=== PATIENT | female | born 1985 | race Caucasian/White ===

== ENCOUNTER 2019-02-02 10:37 | Observation (INO) | payer MEDICAID ==
[~2019-02-02] VITALS: Ht 157.5 cm; Wt 66.5 kg
[2019-02-02] VITALS (11 sets, daily range): BP systolic 133–158; BP diastolic 79–97
--- NOTE | 2019-02-02 10:25 | NUR ---
OMA ABRAMS presented to unit via from ED, accompanied by staff, with INCREASED BLOOD PRESSURE. OMA ABRAMS weighed, gowned, voided, and to bed. EFSANDIP and TOCO applied, VS taken. OMA ABRAMS oriented to bed controls, call light, TV, heat, and A/C controls.
--- NOTE | 2019-02-02 10:47 | NUR ---
dr newberry notified of patient arrival to unit and anticipation of further orders.
[2019-02-02 11:25] LABS: BASOPHILS % (AUTO) 0 % (0-10); EOSINOPHILS # (AUTO) 0.1 10^3/uL (0.0-0.3); EOSINOPHILS % (AUTO) 1 % (0-10); HEMATOCRIT 39 % (35-52); HEMOGLOBIN 12.8 G/DL (11.5-16.0); LYMPHOCYTES # (AUTO) 2.2 X 10^3 (1.0-4.0); LYMPHOCYTES % (AUTO) 14 % (12-44); MEAN CORPUSCULAR HEMOGLOBIN 29 PG (25-34); MEAN CORPUSCULAR HGB CONC 33 G/DL (32-36); MEAN CORPUSCULAR VOLUME 87 FL (80-99); MEAN PLATELET VOLUME 11.2 FL (7.4-10.4); MONOCYTES # (AUTO) 1.4 X 10^3 (0.0-1.0); MONOCYTES % (AUTO) 9 % (0-12); NEUTROPHILS # (AUTO) 12.4 X 10^3 (1.8-7.8); NEUTROPHILS % (AUTO) 77 % (42-75); PLATELET COUNT 235 10^3/uL (130-400); RED CELL DISTRIBUTION WIDTH 13.9 % (10.0-14.5); WHITE BLOOD COUNT 16.2 10^3/uL (4.3-11.0)
--- NOTE | 2019-02-02 11:25 | NUR ---
sono at bedside.
[2019-02-02 11:46] LABS: BAND NEUTROPHILS 0 %; NEUTROPHILS % (MANUAL) 75 %
[2019-02-02 11:47] LABS: BASOPHILS % (MANUAL) 1 %; EOSINOPHILS % (MANUAL) 2 %; LYMPHOCYTES % (MANUAL) 18 %; MONOCYTES % (MANUAL) 4 %; RBC MORPH NORMAL
[2019-02-02 11:52] LABS: ALANINE AMINOTRANSFERASE 18 U/L (0-55); ALBUMIN 3.1 GM/DL (3.2-4.5); ALKALINE PHOSPHATASE 307 U/L (40-136); BILIRUBIN,TOTAL 0.4 MG/DL (0.1-1.0); BUN/CREATININE RATIO 15; CARBON DIOXIDE 18 MMOL/L (21-32); CHLORIDE 108 MMOL/L (98-107); CREATININE SERUM 0.65 MG/DL (0.60-1.30); GFR ESTIMATED > 60; GLUCOSE 86 MG/DL (70-105); POTASSIUM 3.6 MMOL/L (3.6-5.0); SODIUM 137 MMOL/L (135-145); TOTAL PROTEIN 6.5 GM/DL (6.4-8.2); URIC ACID 5.5 MG/DL (2.6-7.2)
[2019-02-02] MEDS ORDERED: BETAMETHASONE ACE/NA PHOS 6 MG/ML (CELESTONE SOLUSPAN) ONE (11:56)
[2019-02-02] MEDS: BETAMETHASONE ACE/NA PHOS 6 MG/ML (CELESTONE SOLUSPAN) IM SCH (12:12)
--- NOTE | 2019-02-02 12:20 | NUR ---
DR BIGGS AT BEDSIDE
[2019-02-02 12:30] LABS: BILIRUBIN,URINE NEGATIVE (NEGATIVE); CLARITY,URINE CLEAR; COLOR,URINE YELLOW; GLUCOSE, URINE (UA) NEGATIVE (NEGATIVE); KETONES,URINE 3+ (NEGATIVE); LEUKOCYTE ESTERASE ,URINE 1+ (NEGATIVE); NITRITE,URINE NEGATIVE (NEGATIVE); PH,URINE 6 (5-9); PROTEIN,URINE NEGATIVE (NEGATIVE)
[2019-02-02 12:39] LABS: AMPHETAMINE SCREEN, URINE POSITIVE (NEGATIVE); BARBITURATE SCREEN URINE NEGATIVE (NEGATIVE); BENZODIAZEPINES SCREEN URINE NEGATIVE (NEGATIVE); CANNABINOID SCREEN, URINE POSITIVE (NEGATIVE); COCAINE SCREEN URINE NEGATIVE (NEGATIVE); METHADONE STAT NEGATIVE (NEGATIVE); METHAMPHETAMINE SCREEN URINE S POSITIVE (NEGATIVE); OPIATE SCREEN URINE POSITIVE (NEGATIVE); OXYCODONE STAT NEGATIVE (NEGATIVE); PROPOXYPHENE STAT NEGATIVE (NEGATIVE); TRICYCLIC ANTIDEPRESSANTS SCRE NEGATIVE (NEGATIVE)
[2019-02-02 12:41] LABS: BACTERIA,URINE NEGATIVE /HPF; WBC,URINE RARE /HPF
--- NOTE | 2019-02-02 12:41 | Diagnostic Imaging Report ---
INDICATION: Hypertension. TECHNIQUE: Multiple real-time grayscale images were obtained over the gravid uterus. COMPARISON: None. FINDINGS: There is an abnormal biophysical profile at 6 out of 8. The deduction was for only intermittent episodes of breathing identified. Amniotic fluid index is 16.6. The heart rate is 135 bpm. Positioning is cephalic. The placenta is anterior fundal. There is no abruption or previa. No abnormality at the anatomical survey is revealed although limited visualization of the intracranial contents and cord insertion acknowledged. IMPRESSION: 6 out of 8 biophysical profile. Normal amniotic fluid index. No visualized anatomical abnormality. Positional limitations of cord insertion and intracranial contents noted. Fetus measuring 35 weeks 1 day, sonographic date of confinement 03/08/2019. Biometrical measurements are as follows: Biparietal 8.66 cm, age 35 weeks 0 days. Head circumference 31.48 cm, age 35 weeks 3 days. Abdominal circumference 31.04 cm, age 35 weeks 0 days. Femur length 6.77 cm, age 34 weeks 6 days. Sonographic estimate age: 35 weeks 1 day. Sonographic estimated date of delivery: . Estimated Weight: 2558 gm (+/- 374 gm). LMP percentile: 42%. heart rate: 135 beats per minute. number: 1 of 1. Dictated by: Dictated on workstation # [id number]
[2019-02-02 12:54] LABS: URINE CREATININE FOR RATIO 49 MG/DL (30-125); URINE PROTEIN FOR RATIO ONLY < 6 MG/DL (6-12)
[2019-02-02] MEDS: D5 LR IV SOLUTION 1,000 ML IV SCH (12:55)
--- NOTE | 2019-02-02 12:58 | NUR ---
DR BIGGS CALLED WITH UPDATED PT REPORT AT THIS TIME. LAB RESULTS READ TO DR BIGGS. DR BIGGS ACKNOWLEDGES RESULTS AND STATES THAT THE HIGH BLOOD PRESSURE IS DUE TO HER POSITIVE DRUG SCREEN. DR BIGGS STATES SHE WILL BE BACK TO SEE THE PT AGAIN IN A LITTLE BIT. NO NEW ORDERS.
--- NOTE | 2019-02-02 13:35 | NUR ---
DR BIGGS CALLED THIS RN WITH UPDATED PLAN OF PT CARE. PLAN IS TO MONITOR PT OVERNIGHT, BEDREST, CONTINUOUS EFM, BLOOD PRESSURES, ADMIN 2ND DOSE FO BETAMETHASONE TOMORROW. IF UNABLE TO CONTROL BLOOD PRESSURES, WILL DO C/S TOMORROW. IF BLOOD PRESSURES ARE CONTROLLED, DR MAY SEND PT HOME. PT MAY EAT UNTIL MIDNIGHT. NPO AFTER MIDNIGHT FOR POSSIBLE C/S TOMORROW.
--- NOTE | 2019-02-02 13:37 | Progress Note ---
Progress Note Assessment/Plan Date Seen by Provider: Feb 02, 2019 Time Seen by Provider: 13:30 Events since last exam US consistent with 35 week gestation. BPP 6/8 (-2 breathing). NST not yet reactive BP still elevated 156/97 P/c neg Laboratory Tests Test 02/02/19 11:15 02/02/19 12:15 Range/Units White Blood Count 16.2 H 4.3-11.0 10^3/uL Red Blood Count 4.46 4.35-5.85 10^6/uL Hemoglobin 12.8 11.5-16.0 G/DL Hematocrit 39 35-52 % Mean Corpuscular Volume 87 80-99 FL Mean Corpuscular Hemoglobin 29 25-34 PG Mean Corpuscular Hemoglobin Concent 33 32-36 G/DL Red Cell Distribution Width 13.9 10.0-14.5 % Platelet Count 235 130-400 10^3/uL Mean Platelet Volume 11.2 H 7.4-10.4 FL Neutrophils (%) (Auto) 77 H 42-75 % Lymphocytes (%) (Auto) 14 12-44 % Monocytes (%) (Auto) 9 0-12 % Eosinophils (%) (Auto) 1 0-10 % Basophils (%) (Auto) 0 0-10 % Neutrophils # (Auto) 12.4 H 1.8-7.8 X 10^3 Lymphocytes # (Auto) 2.2 1.0-4.0 X 10^3 Monocytes # (Auto) 1.4 H 0.0-1.0 X 10^3 Eosinophils # (Auto) 0.1 0.0-0.3 10^3/uL Basophils # (Auto) 0.0 0.0-0.1 10^3/uL Neutrophils % (Manual) 75 % Lymphocytes % (Manual) 18 % Monocytes % (Manual) 4 % Eosinophils % (Manual) 2 % Basophils % (Manual) 1 % Band Neutrophils 0 % Blood Morphology Comment NORMAL Sodium Level 137 135-145 MMOL/L Potassium Level 3.6 3.6-5.0 MMOL/L Chloride Level 108 H 98-107 MMOL/L Carbon Dioxide Level 18 L 21-32 MMOL/L Anion Gap 11 5-14 MMOL/L Blood Urea Nitrogen 10 7-18 MG/DL Creatinine 0.65 0.60-1.30 MG/DL Estimat Glomerular Filtration Rate > 60 BUN/Creatinine Ratio 15 Glucose Level 86 70-105 MG/DL Uric Acid 5.5 2.6-7.2 MG/DL Calcium Level 9.0 8.5-10.1 MG/DL Corrected Calcium 9.7 8.5-10.1 MG/DL Total Bilirubin 0.4 0.1-1.0 MG/DL Aspartate Amino Transf (AST/SGOT) 25 5-34 U/L Alanine Aminotransferase (ALT/SGPT) 18 0-55 U/L Alkaline Phosphatase 307 H 40-136 U/L Lactate Dehydrogenase 185 125-220 U/L Total Protein 6.5 6.4-8.2 GM/DL Albumin 3.1 L 3.2-4.5 GM/DL Urine Color YELLOW Urine Clarity CLEAR Urine pH 6 5-9 Urine Specific [place] 1.015 L 1.016-1.022 Urine Protein NEGATIVE NEGATIVE Urine Glucose (UA) NEGATIVE NEGATIVE Urine Ketones 3+ H NEGATIVE Urine Nitrite NEGATIVE NEGATIVE Urine Bilirubin NEGATIVE NEGATIVE Urine Urobilinogen NORMAL NORMAL MG/DL Urine Leukocyte Esterase 1+ H NEGATIVE Urine RBC (Auto) NEGATIVE NEGATIVE Urine RBC NONE /HPF Urine WBC RARE /HPF Urine Squamous Epithelial Cells 5-10 /HPF Urine Crystals NONE /LPF Urine Bacteria NEGATIVE /HPF Urine Casts NONE /LPF Urine Mucus NEGATIVE /LPF Urine Culture Indicated NO Urine Creatinine 49 30-125 MG/DL Urine Protein/Creatinine Ratio Urine Opiates Screen POSITIVE H NEGATIVE Urine Oxycodone Screen NEGATIVE NEGATIVE Urine Methadone Screen NEGATIVE NEGATIVE Urine Propoxyphene Screen NEGATIVE NEGATIVE Urine Barbiturates Screen NEGATIVE NEGATIVE Ur Tricyclic Antidepressants Screen NEGATIVE NEGATIVE Urine Phencyclidine Screen NEGATIVE NEGATIVE Urine Amphetamines Screen POSITIVE H NEGATIVE Urine Methamphetamines Screen POSITIVE H NEGATIVE Urine Benzodiazepines Screen NEGATIVE NEGATIVE Urine Cocaine Screen NEGATIVE NEGATIVE Urine Cannabinoids Screen POSITIVE H NEGATIVE Assessment/Plan Due to non reactive NST/BPP and + UCG, will monitor blood pressures overnight. If better controlled with bedrest may consider DC home on bedrest with possible CS next week. However, Betamethasone given today and will repeat tomorrow in the event that early CS is necessary. Labs wnl, no proteinuria. + UDS meth/amph/narcotic and THC. Vitals Last set of Vitals Signs Vital Signs Date Time Temp Pulse Resp B/P (MAP) Pulse Ox O2 Delivery O2 Flow Rate FiO2 02/02/19 11:01 35.8 100 16 100 Room Air Labs Laboratory Tests 02/02/19 11:15: White Blood Count 16.2H, Red Blood Count 4.46, Hemoglobin 12.8, Hematocrit 39, Mean Corpuscular Volume 87, Mean Corpuscular Hemoglobin 29, Mean Corpuscular He moglobin Concent 33, Red Cell Distribution Width 13.9, Platelet Count 235, Mean Platelet Volume 11.2H, Neutrophils (%) (Auto) 77H, Lymphocytes (%) (Auto) 14, Monocytes (%) (Auto) 9, Eosinophils (%) (Auto) 1, Basophils (%) (Auto) 0, Neutrophils # (Auto) 12.4H, Lymphocytes # (Auto) 2.2, Monocytes # (Auto) 1.4H, Eosinophils # (Auto) 0.1, Basophils # (Auto) 0.0, Neutrophils % (Manual) 75, Lymphocytes % (Manual) 18, Monocytes % (Manual) 4, Eosinophils % (Manual) 2, Basophils % (Manual) 1, Band Neutrophils 0, Blood Morphology Comment NORMAL, Sodium Level 137, Potassium Level 3.6, Chloride Level 108H, Carbon Dioxide Level 18L, Anion Gap 11, Blood Urea Nitrogen 10, Creatinine 0.65, Estimat Glomerular Filtration Rate > 60, BUN/Creatinine Ratio 15, Glucose Level 86, Uric Acid 5.5, Calcium Level 9.0, Corrected Calcium 9.7, Total Bilirubin 0.4, Aspartate Amino Transf (AST/SGOT) 25, Alanine Aminotransferase (ALT/SGPT) 18, Alkaline Phosphatase 307H, Lactate Dehydrogenase 185, Total Protein 6.5, Albumin 3.1L 02/02/19 12:15: Urine Color YELLOW, Urine Clarity CLEAR, Urine pH 6, Urine Specific [place] 1.015L, Urine Protein NEGATIVE, Urine Glucose (UA) NEGATIVE, Urine Ketones 3+H, Urine Nitrite NEGATIVE, Urine Bilirubin NEGATIVE, Urine Urobilinogen NORMAL, Urine Leukocyte Esterase 1+H, Urine RBC (Auto) NEGATIVE, Urine RBC NONE, Urine WBC RARE, Urine Squamous Epithelial Cells 5-10, Urine Crystals NONE, Urine Bacteria NEGATIVE, Urine Casts NONE, Urine Mucus NEGATIVE, Urine Culture Indicated NO, Urine Creatinine 49, Urine Protein/Creatinine Ratio , Urine Opiates Screen POSITIVEH, Urine Oxycodone Screen NEGATIVE, Urine Methadone Screen NEGATIVE, Urine Propoxyphene Screen NEGATIVE, Urine Barbiturates Screen NEGATIVE, Ur Tricyclic Antidepressants Screen NEGATIVE, Urine Phencyclidine Screen NEGATIVE, Urine Amphetamines Screen POSITIVEH, Urine Methamphetamines Screen POSITIVEH, Urine Benzodiazepines Screen NEGATIVE, Urine Cocaine Screen NEGATIVE, Urine Cannabinoids Screen POSITIVEH JESUS BIGGS DO Feb 02, 2019 13:37 POS
[2019-02-02] MEDS ORDERED: CATHETER FLUSH 10 ML SYR IV SCH (14:00)
--- NOTE | 2019-02-02 17:45 | NUR ---
DR BIGGS AT BEDSIDE. DR BIGGS TALKS WITH THIS RN ABOUT PLAN OF PT CARE. MAY SALINE LOCK IV AFTER 1ST BAG IS FINISHED. WILL RESTART IV FLUIDS AT MIDNIGHT. SCD ORDER OVER NIGHT.
--- NOTE | 2019-02-02 20:32 | NUR ---
Dr. Ochoa called unit and spoke with this RN for update on patient. No new orders received.
[2019-02-02] MEDS ORDERED: D5 LR IV SOLUTION 1,000 ML IV ONE (23:55)
[2019-02-03] MEDS: D5 LR IV SOLUTION 1,000 ML IV SCH
[2019-02-03 00:05] VITALS: BP 127/78
[2019-02-03 04:15] VITALS: BP 132/85
--- NOTE | 2019-02-03 07:55 | NUR ---
DR. BIGGS IN TO SEE PT. ORDER FOR DISCHARGE AFTER BETAMETHASONE GIVEN AT 1200. PT STATES UNDERSTANDING. PT ALSO GOING TO HAVE HER TDAP. ASSESSMENT COMPLETED. VSS.
[2019-02-03 08:02] VITALS: BP 130/69
[2019-02-03] MEDS ORDERED: TETANUS,DIPTH,PERTUSS P/F (BOOSTRIX) 0.5 ML VIAL IM ONE ×2 (08:30→10:33)
--- NOTE | 2019-02-03 09:28 | NUR ---
PT NOT IN ROOM. CALLED CELL PHONE. PT STATES SHE WENT DOWNSTAIRS TO HER CAR WITH S.O. AND WILL RETURN. WANTS TO KNOW IF SHE CAN GET HER SHOT REALLY FAST SO SHE CAN LEAVE. EXPLAINED IT ISN'T DUE UNTIL CLOSER TO NOON.
--- NOTE | 2019-02-03 10:00 | NUR ---
PT RETURNED TO ROOM.
--- NOTE | 2019-02-03 10:30 | NUR ---
PT STATES NEEDS TO LEAVE AND COME BACK FOR SHOT BECAUSE SHE HAS TO MEET WITH AN FIBER DRIER OPERATOR IN [facility] AT 1230 OR SHE WILL BE ARRESTED. DR. BIGGS INFORMED OF PT'S CONCERN AND ORDERED TO GIVE BETAMETHASONE NOW.
[2019-02-03] MEDS: BETAMETHASONE ACE/NA PHOS 6 MG/ML (CELESTONE SOLUSPAN) IM SCH (10:38)
--- NOTE | 2019-02-03 10:38 | NUR ---
BETAMETHASONE 12 MG IM IN LEFT VG SITE. SITE CLEAR.
--- NOTE | 2019-02-03 10:42 | NUR ---
TDAP VACCINE GIVEN IM IN LEFT DELTOID. SITE CLEAR.
[2019-02-03 11:05] VITALS: BP 130/69
--- NOTE | 2019-02-03 11:05 | NUR ---
DISCHARGE INSTRUCTIONS REVIEWED WITH COPY TO PT. STATES UNDERSTANDING OF ALL INSTRUCTIONS AND NEED TO F/U SCHEDULED AND NEEDED. DISMISSED AMB FROM [facility] IN STABLE CONDITION TO FAMILY CAR ACC BY ManuelODioni
== END 2019-02-03 11:05 | disposition home or self-care (01) ==
LOC: WSo 10:37 → LDRP 10:38 → WSo 13:38 → LDRP 13:38
PROVIDERS: ADMIT Obstetrics & Gynecology; ATTEND Obstetrics & Gynecology
DX: O34.219 Maternal care for unspecified type scar from previous cesarean delivery (principal); Z87.891 Personal history of nicotine dependence; Z82.49 Family history of ischemic heart disease and other diseases of the circulatory system; Z83.3 Family history of diabetes mellitus; Z80.41 Family history of malignant neoplasm of ovary; Z37.0 Single live birth
CPT/HCPCS: 36415; 76805; 76819; 80053; 80306; 81000; 82570; 83615; 84156; 84550; 85007; 85027; 86850; 86900; 86901; 87088; 90471; 90715; 96360; 96361; 96372; 99211; G0378

== ENCOUNTER → 2019-02-13 | Outpatient (CLI) | payer MEDICAID ==
[~2019-02-13] VITALS: Ht 154 cm; Wt 70.9 kg
[~2019-02-13] MED LIST: ACET-77 PO; DOCU100C37 PO; FURO20TA4 PO; GABA-488 PO; GUAI600T43 PO; IBUP-844 PO; OXC5T PO; RT-ALBUINH INH
[2019-02-13 11:42] LABS: BILIRUBIN,URINE NEGATIVE (NEGATIVE); CLARITY,URINE CLEAR; COLOR,URINE YELLOW; GLUCOSE, URINE (UA) NEGATIVE (NEGATIVE); KETONES,URINE NEGATIVE (NEGATIVE); LEUKOCYTE ESTERASE ,URINE NEGATIVE (NEGATIVE); NITRITE,URINE NEGATIVE (NEGATIVE); PH,URINE 6.5 (5-9); PROTEIN,URINE NEGATIVE (NEGATIVE)
[2019-02-13 11:43] LABS: BASOPHILS # (AUTO) 0.1 10^3/uL (0.0-0.1); BASOPHILS % (AUTO) 0 % (0-10); EOSINOPHILS # (AUTO) 0.2 10^3/uL (0.0-0.3); EOSINOPHILS % (AUTO) 1 % (0-10); HEMATOCRIT 39 % (35-52); HEMOGLOBIN 12.3 G/DL (11.5-16.0); LYMPHOCYTES # (AUTO) 2.9 X 10^3 (1.0-4.0); LYMPHOCYTES % (AUTO) 17 % (12-44); MEAN CORPUSCULAR HEMOGLOBIN 28 PG (25-34); MEAN CORPUSCULAR HGB CONC 32 G/DL (32-36); MEAN CORPUSCULAR VOLUME 89 FL (80-99); MEAN PLATELET VOLUME 11.4 FL (7.4-10.4); MONOCYTES # (AUTO) 1.5 X 10^3 (0.0-1.0); MONOCYTES % (AUTO) 9 % (0-12); NEUTROPHILS # (AUTO) 12.4 X 10^3 (1.8-7.8); NEUTROPHILS % (AUTO) 73 % (42-75); PLATELET COUNT 253 10^3/uL (130-400); RED CELL DISTRIBUTION WIDTH 14.4 % (10.0-14.5)
[2019-02-13 11:52] LABS: BACTERIA,URINE FEW /HPF; WBC,URINE 0-2 /HPF
[2019-02-13 12:12] LABS: ALANINE AMINOTRANSFERASE 18 U/L (0-55); ALBUMIN 3.2 GM/DL (3.2-4.5); ALKALINE PHOSPHATASE 257 U/L (40-136); BILIRUBIN,TOTAL 0.2 MG/DL (0.1-1.0); BUN/CREATININE RATIO 17; CARBON DIOXIDE 20 MMOL/L (21-32); CHLORIDE 107 MMOL/L (98-107); CREATININE SERUM 0.65 MG/DL (0.60-1.30); GFR ESTIMATED > 60; GLUCOSE 96 MG/DL (70-105); POTASSIUM 4.1 MMOL/L (3.6-5.0); SODIUM 140 MMOL/L (135-145); TOTAL PROTEIN 6.3 GM/DL (6.4-8.2)
[2019-02-13 12:33] LABS: BAND NEUTROPHILS 0 %; BASOPHILS % (MANUAL) 0 %; EOSINOPHILS % (MANUAL) 4 %; LYMPHOCYTES % (MANUAL) 25 %; MONOCYTES % (MANUAL) 7 %; NEUTROPHILS % (MANUAL) 64 %; RBC MORPH NORMAL
== END ==
LOC: PREOP 10:56
PROVIDERS: ATTEND Obstetrics & Gynecology
DX: Z01.818 Encounter for other preprocedural examination (principal); Z01.812 Encounter for preprocedural laboratory examination; O34.219 Maternal care for unspecified type scar from previous cesarean delivery; Z3A.00 Weeks of gestation of pregnancy not specified
CPT/HCPCS: 36415; 80053; 81000; 85007; 85027; 86850; 86900; 86901; 87081

== ENCOUNTER 2019-02-16 11:05 | Inpatient (IN) | payer MEDICAID ==
[2019-02-16] VITALS (8 sets, daily range): BP systolic 123–148; BP diastolic 77–97
[~2019-02-16] VITALS: Ht 157.5 cm; Wt 70.8 kg
--- NOTE | 2019-02-16 11:05 | NUR ---
Arrived to unit for repeat . Wt obtained and to room 315. Gowned and urine sample obtained. To bed and monitors on. Oriented to room, call light and surroundings. plan of care reviewed with pt.
[2019-02-16] MEDS ORDERED: LACTATED RINGERS 1,000 ML IV SCH ×2 (11:42)
[2019-02-16] MEDS ORDERED: ceFAZolin INJECTION 1,000 MG in WATER (STERILE) FOR INJECTION 10 ML IV ONE (11:45)
[2019-02-16] MEDS ORDERED: FAMOTIDINE 20MG/2ML IV (PEPCID) IV ONE (11:45)
[2019-02-16] MEDS ORDERED: METOCLOPRAMIDE INJ 10 MG/2 ML (REGLAN) IV ONE (11:45)
[2019-02-16] MEDS ORDERED: CITRIC ACID/SOB CIT (BICITRA) 30 ML UDC PO ONE (11:45)
[2019-02-16 11:55] LABS: BASOPHILS # (AUTO) 0.1 10^3/uL (0.0-0.1); BASOPHILS % (AUTO) 0 % (0-10); EOSINOPHILS # (AUTO) 0.2 10^3/uL (0.0-0.3); EOSINOPHILS % (AUTO) 1 % (0-10); HEMATOCRIT 38 % (35-52); LYMPHOCYTES # (AUTO) 2.7 X 10^3 (1.0-4.0); LYMPHOCYTES % (AUTO) 13 % (12-44); MEAN CORPUSCULAR HEMOGLOBIN 28 PG (25-34); MEAN CORPUSCULAR HGB CONC 32 G/DL (32-36); MEAN CORPUSCULAR VOLUME 88 FL (80-99); MEAN PLATELET VOLUME 11.6 FL (7.4-10.4); MONOCYTES # (AUTO) 1.5 X 10^3 (0.0-1.0); MONOCYTES % (AUTO) 7 % (0-12); NEUTROPHILS # (AUTO) 15.9 X 10^3 (1.8-7.8); NEUTROPHILS % (AUTO) 78 % (42-75); PLATELET COUNT 257 10^3/uL (130-400); RED CELL DISTRIBUTION WIDTH 14.9 % (10.0-14.5); WHITE BLOOD COUNT 20.3 10^3/uL (4.3-11.0)
[2019-02-16] MEDS ORDERED: ONDANSETRON 4 MG/2 ML (SDV) Z0FRAN ONE (11:59)
[2019-02-16] MEDS ORDERED: fentaNYL INJECTION 100 MCG/2 ML AMP ONE (11:59)
[2019-02-16] MEDS ORDERED: DEXAMETHASONE 10 MG/ML (DECADRON) 1 ML VIAL ONE (11:59)
[2019-02-16] MEDS ORDERED: OXYTOCIN/NORMAL SALINE 1,000 ML IV ONE (12:01)
[2019-02-16 12:17] LABS: URINE CREATININE FOR RATIO 73 MG/DL (30-125); URINE PROTEIN FOR RATIO ONLY < 6 MG/DL (6-12)
[2019-02-16 12:21] LABS: AMPHETAMINE SCREEN, URINE NEGATIVE (NEGATIVE); BARBITURATE SCREEN URINE NEGATIVE (NEGATIVE); BENZODIAZEPINES SCREEN URINE NEGATIVE (NEGATIVE); CANNABINOID SCREEN, URINE POSITIVE (NEGATIVE); COCAINE SCREEN URINE NEGATIVE (NEGATIVE); METHADONE STAT NEGATIVE (NEGATIVE); METHAMPHETAMINE SCREEN URINE S NEGATIVE (NEGATIVE); OPIATE SCREEN URINE NEGATIVE (NEGATIVE); OXYCODONE STAT NEGATIVE (NEGATIVE); PROPOXYPHENE STAT NEGATIVE (NEGATIVE); TRICYCLIC ANTIDEPRESSANTS SCRE NEGATIVE (NEGATIVE)
[2019-02-16 12:24] LABS: ALANINE AMINOTRANSFERASE 21 U/L (0-55); ALBUMIN 3.4 GM/DL (3.2-4.5); ALKALINE PHOSPHATASE 249 U/L (40-136); BILIRUBIN,TOTAL 0.3 MG/DL (0.1-1.0); BUN/CREATININE RATIO 19; CALCIUM 8.7 MG/DL (8.5-10.1); CARBON DIOXIDE 21 MMOL/L (21-32); CHLORIDE 108 MMOL/L (98-107); CREATININE SERUM 0.64 MG/DL (0.60-1.30); GFR ESTIMATED > 60; GLUCOSE 78 MG/DL (70-105); POTASSIUM 3.9 MMOL/L (3.6-5.0); SODIUM 140 MMOL/L (135-145); TOTAL PROTEIN 6.4 GM/DL (6.4-8.2)
[2019-02-16 12:28] LABS: BAND NEUTROPHILS 0 %; BASOPHILS % (MANUAL) 0 %; EOSINOPHILS % (MANUAL) 0 %; LYMPHOCYTES % (MANUAL) 14 %; MONOCYTES % (MANUAL) 11 %; NEUTROPHILS % (MANUAL) 75 %; RBC MORPH NORMAL
[2019-02-16] MEDS ORDERED: KETOROLAC 30 MG/ML VIAL ONE (13:04)
[2019-02-16] MEDS ORDERED: PHENYLEPHRINE 100 MCG/ML 10 ML (ANESTHESIA) SYR ONE (13:04)
[2019-02-16] MEDS ORDERED: BUPIVACAINE 0.25% 30 ML (SENSORCAINE) VIAL ONE (13:08)
[2019-02-16] MEDS: KETOROLAC 30 MG/ML VIAL IV SCH ×2 (13:37→18:58)
[2019-02-16] MEDS ORDERED: OXYTOCIN/NORMAL SALINE 500 ML IV SCH (13:41)
[2019-02-16] MEDS ORDERED: MEASLES,MUMPS,RUBELLA 1 EA INJ SC SCH (13:45)
[2019-02-16] MEDS ORDERED: TETANUS,DIPTH,PERTUSS P/F (BOOSTRIX) 0.5 ML VIAL IM SCH (13:45)
[2019-02-16] MEDS ORDERED: morphine INJ 4 MG/ML 1 ML (VIAL/SYRINGE) IVP PRN (13:45)
--- NOTE | 2019-02-16 13:46 | Progress Note-Pre Operative ---
Pre-Operative Progress Note H&P Reviewed The H&P was reviewed, patient examined and no changes noted. Date Seen by Provider: Feb 16, 2019 Time Seen by Provider: 12:40 Date H&P Reviewed: Feb 16, 2019 Time H&P Reviewed: 12:09 Pre-Operative Diagnosis: Previous section, gestational hypertension JESUS BIGGS DO Feb 16, 2019 13:46 POS
--- NOTE | 2019-02-16 13:51 | Cesarean Section Operative ---
Procedure Procedure Note Pre-operative Diagnosis: Lana barcenas (31 /Para 2 /1 , Gestational Age (wks)37 with [] Post-operative Diagnosis: same [] Procedure: [] low transverse section Physician: JESUS BIGGS Machine Puller And Laster: [] Estimated blood loss: [] mL Disposition: [] Findings: Viable [] , Apgars [], weight [], intact placenta, 3vc, normal appearing uterus, tubes, and ovaries. Indications:Lana barcenas (31 /Para / ,Gestational Age (wks) 37 presenting for []. Procedure Details: The patient was seen in pre-op and the procedure was discussed with the patient in full, including the risks, benefits, and alternatives. All questions were answered. The patient was taken to the operating room and a time out was performed, verifying patient and procedure. After spinal anesthesia was placed by our anesthesia colleagues, the patient was placed in the dorsal supine with leftward tilt for uterine displacement.~ Her abdomen was then prepped and draped in the typical sterile fashion. A Pfannenstiel skin incision was made using a scalpel and carried down through the underlying fascia. The fascia was incised in the midline and tented up using Aiyana clamps. On both the inferior and superior fascia side the rectus muscle was dissected off bluntly and sharply using Mancilla scissors. The peritoneum was identified and entered bluntly in the midline. This was then stretched laterally using manual strength. After entering the abdominal cavity and confirming lack of intraperitoneal adhesions, a large Yevgeniy retractor was placed and the lower uterine segment was visualized. A bladder flap was created with the use of Metzenbaum scissors.~ A scalpel was utilized to make a low transverse uterine incision. Amniotomy was performed with an Allis clamp with return of clear fluid. The infant's head was grasped and brought to the level of the incision. Fundal pressure was applied and infant was delivered without difficulty. Mouth and nares were suctioned with bulb suction. After the umbilical cord was clamped and cut, the was handed off to the pediatric staff. A sample of cord blood was then obtained. The placenta was delivered intact via uterine massage. The uterus was exteriorized and cleared of all clots and debris. The uterine incision was closed using 0 Vicryl in a running locked fashion. A second imbricated layer was placed using 0 Vicryl in a running fashion as well. The uterus was flexed forward and the posterior rectouterine space was inspected and cleared of all clots and debris. Again the hysterotomy site was examined and hemostasis was observed. The bilateral tubes and ovaries appeared normal. The uterus was placed back into the abdominal cavity and abdominal gutters were cleared of all clots and debris. A final check of the uterine incision showed it to be hemostatic. The peritoneum was closed using 3-0 Vicryl in a running fashion. The fascia was closed with 0 Vicryl in a running fashion. The subcutaneous space was hemostatic, and irrigated. The subcutaneous space was closed with 3-0 Vicryl in several single interrupted stitches. The skin was then closed using 4-0 Monocryl in a running subcuticular fashion. The skin edges were reapproximated together and were hemostatic. A pressure dressing was applied. All sponge, lap and needle counts were correct at the end of the procedure per nursing. Vitals - Labs Vital Signs - I&O Vital Signs Date Time Temp Pulse Resp B/P (MAP) Pulse Ox O2 Delivery O2 Flow Rate FiO2 02/16/19 11:20 36.8 114 20 99 Room Air Labs Laboratory Tests 02/16/19 11:30: Urine Protein < 6L, Urine Creatinine 73, Urine Protein/Creatinine Ratio , Urine Opiates Screen NEGATIVE, Urine Oxycodone Screen NEGATIVE, Urine Methadone Screen NEGATIVE, Urine Propoxyphene Screen NEGATIVE, Urine Barbiturates Screen NEGATIVE, Ur Tricyclic Antidepressants Screen NEGATIVE, Urine Phencyclidine Screen NEGATIVE, Urine Amphetamines Screen NEGATIVE, Urine Methamphetamines Screen NEGATIVE, Urine Benzodiazepines Screen NEGATIVE, Urine Cocaine Screen NEGATIVE, Urine Cannabinoids Screen POSITIVEH 02/16/19 11:37: White Blood Count 20.3H, Red Blood Count 4.28L, Hemoglobin 12.0, Hematocrit 38, Mean Corpuscular Volume 88, Mean Corpuscular Hemoglobin 28, Mean Corpuscular Hemoglobin Concent 32, Red Cell Distribution Width 14.9H, Platelet Count 257, Mean Platelet Volume 11.6H, Neutrophils (%) (Auto) 78H, Lymphocytes (%) (Auto) 13, Monocytes (%) (Auto) 7, Eosinophils (%) (Auto) 1, Basophils (%) (Auto) 0, Neutrophils # (Auto) 15.9H, Lymphocytes # (Auto) 2.7, Monocytes # (Auto) 1.5H, Eosinophils # (Auto) 0.2, Basophils # (Auto) 0.1, Neutrophils % (Manual) 75, Lymphocytes % (Manual) 14, Monocytes % (Manual) 11, Eosinophils % (Manual) 0, Basophils % (Manual) 0, Band Neutrophils 0, Blood Morphology Comment NORMAL, Sodium Level 140, Potassium Level 3.9, Chloride Level 108H, Carbon Dioxide Level 21, Anion Gap 11, Blood Urea Nitrogen 12, Creatinine 0.64, Estimat Glomerular Filtration Rate > 60, BUN/Creatinine Ratio 19, Glucose Level 78, Calcium Level 8.7, Corrected Calcium 9.2, Total Bilirubin 0.3, Aspartate Amino Transf (AST/SGOT) 22, Alanine Aminotransferase (ALT/SGPT) 21, Alkaline Phosphatase 249H , Total Protein 6.4, Albumin 3.4 JESUS BIGGS DO Feb 16, 2019 13:50 POS
[2019-02-16] MEDS ORDERED: CATHETER FLUSH 10 ML SYR IV SCH (14:00)
[2019-02-16 14:01] LABS: BILIRUBIN,URINE NEGATIVE (NEGATIVE); CLARITY,URINE CLEAR; COLOR,URINE YELLOW; GLUCOSE, URINE (UA) NEGATIVE (NEGATIVE); KETONES,URINE NEGATIVE (NEGATIVE); LEUKOCYTE ESTERASE ,URINE NEGATIVE (NEGATIVE); NITRITE,URINE NEGATIVE (NEGATIVE); PROTEIN,URINE NEGATIVE (NEGATIVE)
[2019-02-16 14:08] LABS: BACTERIA,URINE NEGATIVE /HPF; SQUAMOUS EPITHELIAL CELL,UR RARE /HPF
--- NOTE | 2019-02-16 14:58 | NUR ---
REPORT FROM ANUPAMA RAMIREZ
--- NOTE | 2019-02-16 14:58 | NUR ---
Report to Jessa Barcenas rN
--- NOTE | 2019-02-16 15:05 | NUR ---
PT RESTING QUIETLY IN BED, NO REQUESTS OR QUESTIONS NOTED AT THIS TIME. PT FAMILY AND AT BEDSIDE, NO DISTRESS NOTED, WILL MONITOR.
--- NOTE | 2019-02-16 16:25 | NUR ---
PT REPORT PAIN, MEDS GIVEN SEE NENA, RT CALLED ABOUT IS. FAMILY AT BEDSIDE.
--- NOTE | 2019-02-16 17:56 | NUR ---
PT RESTING QUIETLY WITH FAMILY AT SIDE, NO DISTRESS NOTED.
--- NOTE | 2019-02-16 18:50 | NUR ---
PT AMBULATED TO BR, VOIDED, VINCENZO-CARE COMPLETED, BACK TO BED, SCHEDULED TORADOL AND TYLENOL GIVEN PER ORDER.
[2019-02-16] MEDS: ACETAMINOPHEN 500 MG TAB (TYLENOL) PO SCH (18:58)
[2019-02-16] MEDS: DOCUSATE SODIUM 100 MG (COLACE) CAP PO SCH (20:11)
[2019-02-17] VITALS (7 sets, daily range): BP systolic 119–177; BP diastolic 68–97
[2019-02-17] MEDS: KETOROLAC 30 MG/ML VIAL IV SCH (02:03)
[2019-02-17] MEDS: ACETAMINOPHEN 500 MG TAB (TYLENOL) PO SCH ×3 (02:04→19:37)
[2019-02-17] MEDS ORDERED: MILK OF MAGNESIA 400 MG/5 ML 30 ML UDC PO PRN (05:00)
--- NOTE | 2019-02-17 05:07 | NUR ---
PT ambulates to desk pushing in open crib accompanied by s/o. Pt appears anxious, stating "Can you all watch him while I go downstairs to smoke?" RN states poc to remove iv access before pt leaves the unit for any reason. Pt states "Fine whatever, I havent slept." IV site removed, see int. Pt gets coffee with s/o in pt kitchen area and ambulates off unit at this time accompanied by s/o.
--- NOTE | 2019-02-17 06:02 | NUR ---
Pt arrives to unit accompanied by s/o, infant to mob room via pt. No ss distress, needs/concerns denied, will cont to monitor.
[2019-02-17 06:26] LABS: BASOPHILS % (AUTO) 0 % (0-10); EOSINOPHILS # (AUTO) 0.1 10^3/uL (0.0-0.3); EOSINOPHILS % (AUTO) 0 % (0-10); HEMATOCRIT 36 % (35-52); HEMOGLOBIN 11.8 G/DL (11.5-16.0); LYMPHOCYTES # (AUTO) 3.5 X 10^3 (1.0-4.0); LYMPHOCYTES % (AUTO) 12 % (12-44); MEAN CORPUSCULAR HEMOGLOBIN 29 PG (25-34); MEAN CORPUSCULAR HGB CONC 33 G/DL (32-36); MEAN CORPUSCULAR VOLUME 88 FL (80-99); MEAN PLATELET VOLUME 11.3 FL (7.4-10.4); MONOCYTES # (AUTO) 2.7 X 10^3 (0.0-1.0); MONOCYTES % (AUTO) 9 % (0-12); NEUTROPHILS % (AUTO) 79 % (42-75); PLATELET COUNT 237 10^3/uL (130-400); RED CELL DISTRIBUTION WIDTH 14.8 % (10.0-14.5)
[2019-02-17 06:45] LABS: WHITE BLOOD COUNT 30.4 10^3/uL (4.3-11.0)
--- NOTE | 2019-02-17 07:30 | Anesthesia-Regional Post-Op ---
Regional Patient Condition Mental Status: Alert, Oriented x3 Circulation: Same as Pre-Op Headache: Absent Sensation: Full Recovery Motor Block: Absent Post Op Complications Complications None Follow Up Care/Instructions Patient Instructions None needed. Anesthesia/Patient Condition Patient is doing well, no complaints, stable vital signs, no apparent adverse anesthesia problems. No complications reported per nursing. D/C home per [facility] [place] Criteria: PRAMOD Winn CRNA Feb 17, 2019 07:30 POS
[2019-02-17 07:44] LABS: ANISOCYTOSIS SLIGHT; BAND NEUTROPHILS 3 %; BASOPHILS % (MANUAL) 0 %; EOSINOPHILS % (MANUAL) 0 %; LYMPHOCYTES % (MANUAL) 20 %; MONOCYTES % (MANUAL) 4 %; NEUTROPHILS % (MANUAL) 73 %
[2019-02-17] MEDS ORDERED: IBUPROFEN 600 MG (MOTRIN) TAB PO ONE (08:51)
[2019-02-17] MEDS: GABAPENTIN 600 MG (NEURONTIN) TAB PO SCH ×2 (08:55→21:24)
--- NOTE | 2019-02-17 08:55 | NUR ---
Patient c/o pain. Oxycodone 5 mg PO given at this time along with scheduled Colace, Neurontin, and Motrin.
[2019-02-17] MEDS: IBUPROFEN 600 MG (MOTRIN) TAB PO SCH ×3 (08:56→21:24)
[2019-02-17] MEDS: DOCUSATE SODIUM 100 MG (COLACE) CAP PO SCH ×2 (08:56→19:37)
--- NOTE | 2019-02-17 09:00 | NUR ---
Dr. Ochoa here to see patient. No new orders received. Addendum: 02/17/19 at 1145 by LA PIERCE RN Acid Washer Operator in seeing patient. Dr. Ochoa will come back to see patient after her surgery this morning.
--- NOTE | 2019-02-17 09:04 | Postpartum Progress Note ---
Post Op Post-operative Day #1 S/p RLITCS gestationa hypertension Subjective: Patient is without complaints. Ambulating, voiding after espitia removed. Tolerating a regular diet without nausea or vomiting. Normal lochia. Pain is well controlled with oral pain medications. Passing flatus. [] feeding. [] Objective: Laboratory Tests Test 02/16/19 11:30 02/16/19 11:37 02/17/19 06:16 Range/Units Urine Color YELLOW Urine Clarity CLEAR Urine pH 7.0 5-9 Urine Specific [place] 1.020 1.016-1.022 Urine Protein < 6 L 6-12 MG/DL Urine Glucose (UA) NEGATIVE NEGATIVE Urine Ketones NEGATIVE NEGATIVE Urine Nitrite NEGATIVE NEGATIVE Urine Bilirubin NEGATIVE NEGATIVE Urine Urobilinogen 0.2 < = 1.0 MG/DL Urine Leukocyte Esterase NEGATIVE NEGATIVE Urine RBC (Auto) NEGATIVE NEGATIVE Urine RBC NONE /HPF Urine WBC NONE /HPF Urine Squamous Epithelial Cells RARE /HPF Urine Crystals NONE /LPF Urine Bacteria NEGATIVE /HPF Urine Casts NONE /LPF Urine Mucus NEGATIVE /LPF Urine Culture Indicated NO Urine Creatinine 73 30-125 MG/DL Urine Protein/Creatinine Ratio Urine Opiates Screen NEGATIVE NEGATIVE Urine Oxycodone Screen NEGATIVE NEGATIVE Urine Methadone Screen NEGATIVE NEGATIVE Urine Propoxyphene Screen NEGATIVE NEGATIVE Urine Barbiturates Screen NEGATIVE NEGATIVE Ur Tricyclic Antidepressants Screen NEGATIVE NEGATIVE Urine Phencyclidine Screen NEGATIVE NEGATIVE Urine Amphetamines Screen NEGATIVE NEGATIVE Urine Methamphetamines Screen NEGATIVE NEGATIVE Urine Benzodiazepines Screen NEGATIVE NEGATIVE Urine Cocaine Screen NEGATIVE NEGATIVE Urine Cannabinoids Screen POSITIVE H NEGATIVE White Blood Count 20.3 H 30.4 *H 4.3-11.0 10^3/uL Red Blood Count 4.28 L 4.11 L 4.35-5.85 10^6/uL Hemoglobin 12.0 11.8 11.5-16.0 G/DL Hematocrit 38 36 35-52 % Mean Corpuscular Volume 88 88 80-99 FL Mean Corpuscular Hemoglobin 28 29 25-34 PG Mean Corpuscular Hemoglobin Concent 32 33 32-36 G/DL Red Cell Distribution Width 14.9 H 14.8 H 10.0-14.5 % Platelet Count 257 237 130-400 10^3/uL Mean Platelet Volume 11.6 H 11.3 H 7.4-10.4 FL Neutrophils (%) (Auto) 78 H 79 H 42-75 % Lymphocytes (%) (Auto) 13 12 12-44 % Monocytes (%) (Auto) 7 9 0-12 % Eosinophils (%) (Auto) 1 0 0-10 % Basophils (%) (Auto) 0 0 0-10 % Neutrophils # (Auto) 15.9 H 24.0 H 1.8-7.8 X 10^3 Lymphocytes # (Auto) 2.7 3.5 1.0-4.0 X 10^3 Monocytes # (Auto) 1.5 H 2.7 H 0.0-1.0 X 10^3 Eosinophils # (Auto) 0.2 0.1 0.0-0.3 10^3/uL Basophils # (Auto) 0.1 0.0 0.0-0.1 10^3/uL Neutrophils % (Manual) 75 73 % Lymphocytes % (Manual) 14 20 % Monocytes % (Manual) 11 4 % Eosinophils % (Manual) 0 0 % Basophils % (Manual) 0 0 % Band Neutrophils 0 3 % Blood Morphology Comment NORMAL Sodium Level 140 135-145 MMOL/L Potassium Level 3.9 3.6-5.0 MMOL/L Chloride Level 108 H 98-107 MMOL/L Carbon Dioxide Level 21 21-32 MMOL/L Anion Gap 11 5-14 MMOL/L Blood Urea Nitrogen 12 7-18 MG/DL Creatinine 0.64 0.60-1.30 MG/DL Estimat Glomerular Filtration Rate > 60 BUN/Creatinine Ratio 19 Glucose Level 78 70-105 MG/DL Calcium Level 8.7 8.5-10.1 MG/DL Corrected Calcium 9.2 8.5-10.1 MG/DL Total Bilirubin 0.3 0.1-1.0 MG/DL Aspartate Amino Transf (AST/SGOT) 22 5-34 U/L Alanine Aminotransferase (ALT/SGPT) 21 0-55 U/L Alkaline Phosphatase 249 H 40-136 U/L Total Protein 6.4 6.4-8.2 GM/DL Albumin 3.4 3.2-4.5 GM/DL Anisocytosis SLIGHT 02/17/19 02/17/19 00:09 06:40 Temp 36.6 36.8 Pulse 93 70 Resp 20 20 B/P (MAP) 136/70 (92) 129/77 (94) Pulse Ox 94 100 O2 Delivery Room Air Room Air 02/17/19 00:00 Intake Total 2560 ml Output Total 750 ml Balance 1810 ml Physical Exam: General - Alert and oriented, no apparent distress Abdomen - Soft, appropriately tender to palpation, non-distended, fundus firm at umbilicus Incision - clean, dry and intact; no erythema or induration, no drainage Extremities - no edema, negative Robbie's bilaterally [] Assessment: [] post-operative day # [], status post []. Recovering well, hemodynamically stable Acute blood loss anemia [] Plan: Routine post-operative care. Encourage breast feeding. Encourage ambulation. VTE prophylaxis: SCDs. Ferrous sulfate supplementation. Plan for discharge [] Vitals - Labs Vital Signs - I&O Vital Signs Date Time Temp Pulse Resp B/P (MAP) Pulse Ox O2 Delivery O2 Flow Rate FiO2 02/17/19 06:40 36.8 70 20 129/77 (94) 100 Room Air 02/17/19 00:09 36.6 93 20 136/70 (92) 94 Room Air 02/16/19 20:10 Room Air 02/16/19 20:05 36.9 98 20 143/77 (99) 98 Room Air 02/16/19 17:22 36.7 103 20 148/77 (100) 97 Room Air 02/16/19 16:39 Room Air 02/16/19 15:05 Room Air 02/16/19 14:30 Room Air 02/16/19 14:30 36.5 18 131/90 (104) 100 Room Air 02/16/19 14:15 36.4 18 123/89 (100) 100 Room Air 02/16/19 14:15 Room Air 02/16/19 14:00 36.2 16 134/84 (101) 100 Room Air 02/16/19 14:00 Room Air 02/16/19 13:48 Room Air 02/16/19 12:12 99 20 141/91 (108) 98 Room Air 02/16/19 11:50 109 20 133/82 (99) 98 Room Air 02/16/19 11:20 36.8 114 20 99 Room Air 02/16/19 11:20 36.8 114 20 139/97 (111) 99 Room Air I & O 02/17/19 07:00 Intake Total 2560 ml Output Total 750 ml Balance 1810 ml Labs Laboratory Tests 02/16/19 11:30: Urine Color YELLOW, Urine Clarity CLEAR, Urine pH 7.0, Urine Specific [place] 1.020, Urine Protein < 6L, Urine Glucose (UA) NEGATIVE, Urine Ketones NEGATIVE, Urine Nitrite NEGATIVE, Urine Bilirubin NEGATIVE, Urine Urobilinogen 0.2, Urine Leukocyte Esterase NEGATIVE, Urine RBC (Auto) NEGATIVE, Urine RBC NONE, Urine WBC NONE, Urine Squamous Epithelial Cells RARE, Urine Crystals NONE, Urine Bacteria NEGATIVE, Urine Casts NONE, Urine Mucus NEGATIVE, Urine Culture Indicated NO, Urine Creatinine 73, Urine Protein/Creatinine Ratio , Urine Opiates Screen NEGATIVE, Urine Oxycodone Screen NEGATIVE, Urine Methadone Screen NEGATIVE, Urine Propoxyphene Screen NEGATIVE, Urine Barbiturates Screen NEGATIVE, Ur Tricyclic Antidepressants Screen NEGATIVE, Urine Phencyclidine Screen NEGATIVE, Urine Amphetamines Screen NEGATIVE, Urine Methamphetamines Screen NEGATIVE, Urine Benzodiazepines Screen NEGATIVE, Urine Cocaine Screen NEGATIVE, Urine Cannabinoids Screen POSITIVEH 02/16/19 11:37: White Blood Count 20.3H, Red Blood Count 4.28L, Hemoglobin 12.0, Hematocrit 38, Mean Corpuscular Volume 88, Mean Corpuscular Hemoglobin 28, Mean Corpuscular Hemoglobin Concent 32, Red Cell Distribution Width 14.9H, Platelet Count 257, Mean Platelet Volume 11.6H, Neutrophils (%) (Auto) 78H, Lymphocytes (%) (Auto) 13, Monocytes (%) (Auto) 7, Eosinophils (%) (Auto) 1, Basophils (%) (Auto) 0, Neutrophils # (Auto) 15.9H, Lymphocytes # (Auto) 2.7, Monocytes # (Auto) 1.5H, Eosinophils # (Auto) 0.2, Basophils # (Auto) 0.1, Neutrophils % (Manual) 75, Lymphocytes % (Manual) 14, Monocytes % (Manual) 11, Eosinophils % (Manual) 0, Basophils % (Manual) 0, Band Neutrophils 0, Blood Morphology Comment NORMAL, Sodium Level 140, Potassium Level 3.9, Chloride Level 108H, Carbon Dioxide Level 21, Anion Gap 11, Blood Urea Nitrogen 12, Creatinine 0.64, Estimat Glomerular Filtration Rate > 60, BUN/Creatinine Ratio 19, Glucose Level 78, Calcium Level 8.7, Corrected Calcium 9.2, Total Bilirubin 0.3, Aspartate Amino Transf (AST/ SGOT) 22, Alanine Aminotransferase (ALT/SGPT) 21, Alkaline Phosphatase 249H, Total Protein 6.4, Albumin 3.4 02/17/19 06:16: White Blood Count 30.4*H, Red Blood Count 4.11L, Hemoglobin 11.8, Hematocrit 36, Mean Corpuscular Volume 88, Mean Corpuscular Hemoglobin 29, Mean Corpuscular Hemoglobin Concent 33, Red Cell Distribution Width 14.8H, Platelet Count 237, Mean Platelet Volume 11.3H, Neutrophils (%) (Auto) 79H, Lymphocytes (%) (Auto) 12, Monocytes (%) (Auto) 9, Eosinophils (%) (Auto) 0, Basophils (%) (Auto) 0, Neutrophils # (Auto) 24.0H, Lymphocytes # (Auto) 3.5, Monocytes # (Auto) 2.7H, Eosinophils # (Auto) 0.1, Basophils # (Auto) 0.0, Neutrophils % (Manual) 73, Lymphocytes % (Manual) 20, Monocytes % (Manual) 4, Eosinophils % (Manual) 0, Basophils % (Manual) 0, Band Neutrophils 3, Anisocytosis SLIGHT JESUS BIGGS DO Feb 17, 2019 9:04 am POS
--- NOTE | 2019-02-17 10:47 | NUR ---
AM shift assessment completed and vital signs obtained, see interventions. Shower supplies provided.
--- NOTE | 2019-02-17 11:24 | NUR ---
Scheduled Tylenol PO given. Abdominal binder placed. Shower linens moved to dirty linen bin. Patient denies any current needs or concerns at this time.
--- NOTE | 2019-02-17 11:39 | NUR ---
BP re-checked at this time.
--- NOTE | 2019-02-17 11:42 | NUR ---
Dr. Ochoa notified of patient's elevated BP. On way to unit to see patient.
--- NOTE | 2019-02-17 11:45 | NUR ---
Dr. Ochoa here to see patient. Addendum: 02/17/19 at 1155 by LA PIERCE RN New orders received.
[2019-02-17] MEDS: FUROSEMIDE 20 MG (LASIX) TAB PO SCH (13:40)
--- NOTE | 2019-02-17 13:42 | NUR ---
Oxycodone 5mg PO for patient's c/o pain rated 6/10 and scheduled Lasix 20mg PO given at this time.
--- NOTE | 2019-02-17 15:48 | NUR ---
Scheduled Motrin PO given.
--- NOTE | 2019-02-17 16:50 | NUR ---
Met with pt with the assistance of Mery Hartley RN after receiving a social work consult concerning pt's history of positive drug screen on for opiate, amphetamines, methamphetamines, and THC..On this admission,pt was positive for cannabinoids and all other drug screens tested negative. Pt was unable to explain positive drug tests but only stated that she would participate in any program that would allow her to keep her . She has a 11 year old son who lives part-time with her and part-time with her mother so that her son can attend school in [place]. Report was made to [place] [facility] with intake number [id number]. Also notified Child Protection Director Of Physical Security,Mackenzie Rodriguez of report from the local [place] [facility] [employer] [facility]. A [employer] social welfare administrator did visit with pt and notified nursery RN that currently they would allow infant to be discharged to the care of pt and would provide follow-up. Pt stated that she planned to be staying at the home of her mother Swetha Kuo upon discharge for her assistance. Will provide followup if mother has any needs prior to her discharge.
[2019-02-18] MEDS: IBUPROFEN 600 MG (MOTRIN) TAB PO SCH ×4 (02:48→21:54)
[2019-02-18] MEDS: ACETAMINOPHEN 500 MG TAB (TYLENOL) PO SCH ×4 (02:48→22:28)
[2019-02-18 03:15] VITALS: BP 141/96
[2019-02-18] MEDS ORDERED: RT-ALBUTEROL SULF 2.5 MG/3 ML PRE-MIX VIAL ONE (03:35)
[2019-02-18 03:47] VITALS: BP 141/96
[2019-02-18] MEDS ORDERED: RT-ALBUTEROL SULF 2.5 MG/3 ML PRE-MIX VIAL INH PRN (04:00)
[2019-02-18 07:40] VITALS: BP 132/79
[2019-02-18] MEDS ORDERED: RT-ALBUTEROL SULF 2.5 MG/3 ML PRE-MIX VIAL INH SCH (08:00)
[2019-02-18 08:47] LABS: BASOPHILS % (AUTO) 0 % (0-10); EOSINOPHILS # (AUTO) 0.2 10^3/uL (0.0-0.3); EOSINOPHILS % (AUTO) 1 % (0-10); HEMATOCRIT 33 % (35-52); HEMOGLOBIN 10.7 G/DL (11.5-16.0); LYMPHOCYTES # (AUTO) 3.8 X 10^3 (1.0-4.0); LYMPHOCYTES % (AUTO) 21 % (12-44); MEAN CORPUSCULAR HEMOGLOBIN 29 PG (25-34); MEAN CORPUSCULAR HGB CONC 33 G/DL (32-36); MEAN CORPUSCULAR VOLUME 89 FL (80-99); MEAN PLATELET VOLUME 11.1 FL (7.4-10.4); MONOCYTES # (AUTO) 1.5 X 10^3 (0.0-1.0); MONOCYTES % (AUTO) 9 % (0-12); NEUTROPHILS # (AUTO) 12.4 X 10^3 (1.8-7.8); NEUTROPHILS % (AUTO) 69 % (42-75); PLATELET COUNT 214 10^3/uL (130-400); RED CELL DISTRIBUTION WIDTH 14.9 % (10.0-14.5)
--- NOTE | 2019-02-18 09:35 | NUR ---
Xray here, taken to radiology via w/c
[2019-02-18] MEDS ORDERED: NICOTINE 21 MG (NICODERM) PATCH TD NR (09:45)
[2019-02-18] MEDS: FUROSEMIDE 20 MG (LASIX) TAB PO SCH (09:56)
[2019-02-18] MEDS: DOCUSATE SODIUM 100 MG (COLACE) CAP PO SCH ×2 (09:56→19:57)
[2019-02-18] MEDS: guaiFENesin (MUCINEX) 600 MG TAB PO SCH ×2 (09:56→21:54)
--- NOTE | 2019-02-18 10:16 | Diagnostic Imaging Report ---
INDICATION: Wheezing and cough. TIME OF EXAM: 9:45 AM COMPARISON: Comparison is made with prior exam from 05/09/2007. FINDINGS: The heart size is normal. Lungs are clear. Pulmonary vascularity is normal. No infiltrate, effusion or pneumothorax is detected. IMPRESSION: No acute cardiopulmonary process is detected. Dictated by: Dictated on workstation # [id number]
[2019-02-18] MEDS: GABAPENTIN 600 MG (NEURONTIN) TAB PO SCH ×2 (11:09→21:54)
--- NOTE | 2019-02-18 11:45 | NUR ---
Report received from ASHLEY otoole.
--- NOTE | 2019-02-18 12:00 | NUR ---
here to see pt.
--- NOTE | 2019-02-18 13:57 | Postpartum Progress Note ---
Post Op Post-operative Day #2 s/p RLTCS Blood pressures continue to be labile. Especially when she is up and around. She has had increased cough. Becoming more productive. CXR this morning was negative. Patient states it comes up and clears with cough but she doesn't want to cough bc of the incision. Pain is not as well controlled as she would like. Thinks neurontin is helping pain. Decreased swelling. Agrees to follow up with Dr. Jessika Peterson for post operative pain management/drug rehab. She does not admit to drug usage but had + UDS. Subjective: Patient is without complaints. Ambulating, voiding after espitia removed. Tolerating a regular diet without nausea or vomiting. Normal lochia. Pain is well controlled with oral pain medications. Passing flatus. bottle feeding. Objective: Laboratory Tests Test 02/18/19 08:40 Range/Units White Blood Count 18.0 H 4.3-11.0 10^3/uL Red Blood Count 3.69 L 4.35-5.85 10^6/uL Hemoglobin 10.7 L 11.5-16.0 G/DL Hematocrit 33 L 35-52 % Mean Corpuscular Volume 89 80-99 FL Mean Corpuscular Hemoglobin 29 25-34 PG Mean Corpuscular Hemoglobin Concent 33 32-36 G/DL Red Cell Distribution Width 14.9 H 10.0-14.5 % Platelet Count 214 130-400 10^3/uL Mean Platelet Volume 11.1 H 7.4-10.4 FL Neutrophils (%) (Auto) 69 42-75 % Lymphocytes (%) (Auto) 21 12-44 % Monocytes (%) (Auto) 9 0-12 % Eosinophils (%) (Auto) 1 0-10 % Basophils (%) (Auto) 0 0-10 % Neutrophils # (Auto) 12.4 H 1.8-7.8 X 10^3 Lymphocytes # (Auto) 3.8 1.0-4.0 X 10^3 Monocytes # (Auto) 1.5 H 0.0-1.0 X 10^3 Eosinophils # (Auto) 0.2 0.0-0.3 10^3/uL Basophils # (Auto) 0.0 0.0-0.1 10^3/uL 02/18/19 02/18/19 02/18/19 02/18/19 03:15 03:43 03:47 07:40 Temp 36.7 36.7 37.1 Pulse 81 81 91 Resp 18 18 B/P (MAP) 141/96 (111) 132/79 (96) Pulse Ox 98 97 97 98 O2 Delivery Room Air Room Air Room Air 02/18/19 08:00 Pulse Ox 98 O2 Delivery Room Air VS - Last 72 Hours, by Label POS 02/16/19 02/16/19 02/16/19 02/16/19 11:20 11:20 11:50 12:12 Temp 36.8 36.8 Pulse 114 114 109 99 Resp 20 20 20 20 B/P (MAP) 139/97 (111) 133/82 (99) 141/91 (108) Pulse Ox 99 99 98 98 O2 Delivery Room Air Room Air Room Air Room Air 02/16/19 02/16/19 02/16/19 02/16/19 13:48 14:00 14:00 14:15 Temp 36.2 Resp 16 B/P (MAP) 134/84 (101) Pulse Ox 100 O2 Delivery Room Air Room Air Room Air Room Air 02/16/19 02/16/19 02/16/19 02/16/19 14:15 14:30 14:30 15:05 Temp 36.4 36.5 Resp 18 18 B/P (MAP) 123/89 (100) 131/90 (104) Pulse Ox 100 100 O2 Delivery Room Air Room Air Room Air Room Air 02/16/19 02/16/19 02/16/19 02/16/19 16:39 17:22 20:05 20:10 Temp 36.7 36.9 Pulse 103 98 Resp 20 20 B/P (MAP) 148/77 (100) 143/77 (99) Pulse Ox 97 98 O2 Delivery Room Air Room Air Room Air Room Air 02/17/19 02/17/19 02/17/19 02/17/19 00:09 06:40 10:47 10:47 Temp 36.6 36.8 36.7 Pulse 93 70 98 Resp 20 20 18 B/P (MAP) 136/70 (92) 129/77 (94) 177/91 (119) Pulse Ox 94 100 98 O2 Delivery Room Air Room Air Room Air Room Air 02/17/19 02/17/19 02/17/19 02/17/19 11:39 13:39 15:48 21:24 Temp 36.9 36.4 Pulse 106 92 Resp 18 18 B/P (MAP) 137/88 (104) 161/97 (118) 151/97 (115) Pulse Ox 99 99 98 O2 Delivery Room Air Room Air Room Air 02/17/19 02/18/19 02/18/19 02/18/19 22:08 03:15 03:43 03:47 Temp 36.9 36.7 36.7 Pulse 96 81 81 Resp 18 18 B/P (MAP) 119/68 (85) 141/96 (111) Pulse Ox 98 98 97 97 O2 Delivery Room Air Room Air Room Air 02/18/19 02/18/19 07:40 08:00 Temp 37.1 Pulse 91 Resp 18 B/P (MAP) 132/79 (96) Pulse Ox 98 98 O2 Delivery Room Air Room Air Physical Exam: General - Alert and oriented, no apparent distress Abdomen - Soft, appropriately tender to palpation, non-distended, fundus firm at umbilicus Incision - clean, dry and intact; no erythema or induration, no drainage Extremities - 2+ edema, negative Robbie's bilaterally Lungs - course lungs sounds through out. Some expiratory wheezes. Clears with cough. No decrease in lung sounds. Assessment: 1. post-operative day # 2, status post RLTCS. Recovering well, hemodynamically stable 2. Acute blood loss anemia 3. Gestational hypertensions 4. + UDS - agrees to post hospital treatment 5. Neurontin for post op pain management 6. cough due to smoking/?bronchitis Plan: Routine post-operative care. Continue neurontin Continue Lasix x 5 days, consider Norvasc Encourage ambulation. VTE prophylaxis: SCDs. Ferrous sulfate supplementation. Plan for discharge tomorrow. Vitals - Labs Vital Signs - I&O Vital Signs Date Time Temp Pulse Resp B/P (MAP) Pulse Ox O2 Delivery O2 Flow Rate FiO2 02/18/19 08:00 98 Room Air 02/18/19 07:40 37.1 91 18 132/79 (96) 98 Room Air 02/18/19 03:47 36.7 81 97 02/18/19 03:43 97 Room Air 02/18/19 03:15 36.7 81 18 141/96 (111) 98 Room Air 02/17/19 22:08 36.9 96 18 119/68 (85) 98 Room Air 02/17/19 21:24 98 Room Air 02/17/19 15:48 36.4 92 18 151/97 (115) 99 Room Air I & O 02/18/19 07:00 Intake Total 600 ml Output Total 100 ml Balance 500 ml Labs Laboratory Tests 02/18/19 08:40: White Blood Count 18.0H, Red Blood Count 3.69L, Hemoglobin 10.7L, Hematocrit 33L , Mean Corpuscular Volume 89, Mean Corpuscular Hemoglobin 29, Mean Corpuscular Hemoglobin Concent 33, Red Cell Distribution Width 14.9H, Platelet Count 214, Mean Platelet Volume 11.1H, Neutrophils (%) (Auto) 69, Lymphocytes (%) (Auto) 21, Monocytes (%) (Auto) 9, Eosinophils (%) (Auto) 1, Basophils (%) (Auto) 0, Neutrophils # (Auto) 12.4H, Lymphocytes # (Auto) 3.8, Monocytes # (Auto) 1.5H, Eosinophils # (Auto) 0.2, Basophils # (Auto) 0.0 Microbiology 02/16/19 MRSA Screen - Final, Complete MRSA not isolated JESUS BIGGS DO Feb 18, 2019 13:57 POS
[2019-02-18 15:47] VITALS: BP 134/79
[2019-02-18] MEDS: RT-ALBUTEROL SULF 2.5 MG/3 ML PRE-MIX VIAL INH SCH ×2 (18:27→21:42)
--- NOTE | 2019-02-18 19:12 | NUR ---
report given to next shift.
[2019-02-18 21:54] VITALS: BP 140/85
[2019-02-19] MEDS: RT-ALBUTEROL SULF 2.5 MG/3 ML PRE-MIX VIAL INH SCH (01:55)
[2019-02-19 04:51] VITALS: BP 116/76
[2019-02-19] MEDS: ACETAMINOPHEN 500 MG TAB (TYLENOL) PO SCH (04:51)
[2019-02-19] MEDS: IBUPROFEN 600 MG (MOTRIN) TAB PO SCH ×2 (04:51→10:15)
[2019-02-19] MEDS: FUROSEMIDE 20 MG (LASIX) TAB PO SCH (08:19)
[2019-02-19] MEDS: GABAPENTIN 600 MG (NEURONTIN) TAB PO SCH (08:19)
[2019-02-19] MEDS: guaiFENesin (MUCINEX) 600 MG TAB PO SCH (08:19)
[2019-02-19] MEDS: DOCUSATE SODIUM 100 MG (COLACE) CAP PO SCH (08:19)
[2019-02-19 08:20] VITALS: BP 140/88
--- NOTE | 2019-02-19 08:20 | NUR ---
initial shift assessment completed, see interventions for further. POC reviewed, states understanding.
--- NOTE | 2019-02-19 09:10 | Postpartum Progress Note ---
Post Op Post-operative Day #[] Subjective: Patient is without complaints. Ambulating, voiding after espitia removed. Tolerating a regular diet without nausea or vomiting. Normal lochia. Pain is well controlled with oral pain medications. Passing flatus. [] feeding. [] Objective: VS - Last 72 Hours, by Label POS 02/16/19 02/16/19 02/16/19 02/16/19 11:20 11:20 11:50 12:12 Temp 36.8 36.8 Pulse 114 114 109 99 Resp 20 20 20 20 B/P (MAP) 139/97 (111) 133/82 (99) 141/91 (108) Pulse Ox 99 99 98 98 O2 Delivery Room Air Room Air Room Air Room Air 02/16/19 02/16/19 02/16/19 02/16/19 13:48 14:00 14:00 14:15 Temp 36.2 Resp 16 B/P (MAP) 134/84 (101) Pulse Ox 100 O2 Delivery Room Air Room Air Room Air Room Air 02/16/19 02/16/19 02/16/19 02/16/19 14:15 14:30 14:30 15:05 Temp 36.4 36.5 Resp 18 18 B/P (MAP) 123/89 (100) 131/90 (104) Pulse Ox 100 100 O2 Delivery Room Air Room Air Room Air Room Air 02/16/19 02/16/19 02/16/19 02/16/19 16:39 17:22 20:05 20:10 Temp 36.7 36.9 Pulse 103 98 Resp 20 20 B/P (MAP) 148/77 (100) 143/77 (99) Pulse Ox 97 98 O2 Delivery Room Air Room Air Room Air Room Air 02/17/19 02/17/19 02/17/19 02/17/19 00:09 06:40 10:47 10:47 Temp 36.6 36.8 36.7 Pulse 93 70 98 Resp 20 20 18 B/P (MAP) 136/70 (92) 129/77 (94) 177/91 (119) Pulse Ox 94 100 98 O2 Delivery Room Air Room Air Room Air Room Air 02/17/19 02/17/19 02/17/19 02/17/19 11:39 13:39 15:48 21:24 Temp 36.9 36.4 Pulse 106 92 Resp 18 18 B/P (MAP) 137/88 (104) 161/97 (118) 151/97 (115) Pulse Ox 99 99 98 O2 Delivery Room Air Room Air Room Air 02/17/19 02/18/19 02/18/19 02/18/19 22:08 03:15 03:43 03:47 Temp 36.9 36.7 36.7 Pulse 96 81 81 Resp 18 18 B/P (MAP) 119/68 (85) 141/96 (111) Pulse Ox 98 98 97 97 O2 Delivery Room Air Room Air Room Air 02/18/19 02/18/19 02/18/19 02/18/19 07:40 08:00 15:47 18:28 Temp 37.1 36.4 Pulse 91 98 Resp 18 18 B/P (MAP) 132/79 (96) 134/79 (97) Pulse Ox 98 98 96 98 O2 Delivery Room Air Room Air Room Air Room Air 02/18/19 02/18/19 02/18/19 02/19/19 20:00 21:42 21:54 04:51 Temp 36.7 36.5 Pulse 98 79 Resp 18 18 B/P (MAP) 140/85 (103) 116/76 (89) Pulse Ox 99 96 99 98 O2 Delivery Room Air Room Air Room Air Room Air 02/19/19 02/19/19 08:20 08:20 Temp 36.6 Pulse 99 Resp 18 B/P (MAP) 140/88 (105) Pulse Ox 98 98 O2 Delivery Room Air Room Air 02/18/19 02/18/19 02/19/19 02/19/19 21:42 21:54 04:51 08:20 Temp 36.7 36.5 36.6 Pulse 98 79 99 Resp 18 18 18 B/P (MAP) 140/85 (103) 116/76 (89) 140/88 (105) Pulse Ox 96 99 98 98 O2 Delivery Room Air Room Air Room Air Room Air 02/19/19 08:20 Pulse Ox 98 O2 Delivery Room Air Laboratory Tests Test 02/16/19 11:30 02/16/19 11:37 02/17/19 06:16 02/18/19 08:40 Range/Units Urine Color YELLOW Urine Clarity CLEAR Urine pH 7.0 5-9 Urine Specific [place] 1.020 1.016-1.022 Urine Protein < 6 L 6-12 MG/DL Urine Glucose (UA) NEGATIVE NEGATIVE Urine Ketones NEGATIVE NEGATIVE Urine Nitrite NEGATIVE NEGATIVE Urine Bilirubin NEGATIVE NEGATIVE Urine Urobilinogen 0.2 < = 1.0 MG/DL Urine Leukocyte Esterase NEGATIVE NEGATIVE Urine RBC (Auto) NEGATIVE NEGATIVE Urine RBC NONE /HPF Urine WBC NONE /HPF Urine Squamous Epithelial Cells RARE /HPF Urine Crystals NONE /LPF Urine Bacteria NEGATIVE /HPF Urine Casts NONE /LPF Urine Mucus NEGATIVE /LPF Urine Culture Indicated NO Urine Creatinine 73 30-125 MG/DL Urine Protein/Creatinine Ratio Urine Opiates Screen NEGATIVE NEGATIVE Urine Oxycodone Screen NEGATIVE NEGATIVE Urine Methadone Screen NEGATIVE NEGATIVE Urine Propoxyphene Screen NEGATIVE NEGATIVE Urine Barbiturates Screen NEGATIVE NEGATIVE Ur Tricyclic Antidepressants Screen NEGATIVE NEGATIVE Urine Phencyclidine Screen NEGATIVE NEGATIVE Urine Amphetamines Screen NEGATIVE NEGATIVE Urine Methamphetamines Screen NEGATIVE NEGATIVE Urine Benzodiazepines Screen NEGATIVE NEGATIVE Urine Cocaine Screen NEGATIVE NEGATIVE Urine Cannabinoids Screen POSITIVE H NEGATIVE White Blood Count 20.3 H 30.4 *H 18.0 H 4.3-11.0 10^3/uL Red Blood Count 4.28 L 4.11 L 3.69 L 4.35-5.85 10^6/uL Hemoglobin 12.0 11.8 10.7 L 11.5-16.0 G/DL Hematocrit 38 36 33 L 35-52 % Mean Corpuscular Volume 88 88 89 80-99 FL Mean Corpuscular Hemoglobin 28 29 29 25-34 PG Mean Corpuscular Hemoglobin Concent 32 33 33 32-36 G/DL Red Cell Distribution Width 14.9 H 14.8 H 14.9 H 10.0-14.5 % Platelet Count 257 237 214 130-400 10^3/uL Mean Platelet Volume 11.6 H 11.3 H 11.1 H 7.4-10.4 FL Neutrophils (%) (Auto) 78 H 79 H 69 42-75 % Lymphocytes (%) (Auto) 13 12 21 12-44 % Monocytes (%) (Auto) 7 9 9 0-12 % Eosinophils (%) (Auto) 1 0 1 0-10 % Basophils (%) (Auto) 0 0 0 0-10 % Neutrophils # (Auto) 15.9 H 24.0 H 12.4 H 1.8-7.8 X 10^3 Lymphocytes # (Auto) 2.7 3.5 3.8 1.0-4.0 X 10^3 Monocytes # (Auto) 1.5 H 2.7 H 1.5 H 0.0-1.0 X 10^3 Eosinophils # (Auto) 0.2 0.1 0.2 0.0-0.3 10^3/uL Basophils # (Auto) 0.1 0.0 0.0 0.0-0.1 10^3/uL Neutrophils % (Manual) 75 73 % Lymphocytes % (Manual) 14 20 % Monocytes % (Manual) 11 4 % Eosinophils % (Manual) 0 0 % Basophils % (Manual) 0 0 % Band Neutrophils 0 3 % Blood Morphology Comment NORMAL Sodium Level 140 135-145 MMOL/L Potassium Level 3.9 3.6-5.0 MMOL/L Chloride Level 108 H 98-107 MMOL/L Carbon Dioxide Level 21 21-32 MMOL/L Anion Gap 11 5-14 MMOL/L Blood Urea Nitrogen 12 7-18 MG/DL Creatinine 0.64 0.60-1.30 MG/DL Estimat Glomerular Filtration Rate > 60 BUN/Creatinine Ratio 19 Glucose Level 78 70-105 MG/DL Calcium Level 8.7 8.5-10.1 MG/DL Corrected Calcium 9.2 8.5-10.1 MG/DL Total Bilirubin 0.3 0.1-1.0 MG/DL Aspartate Amino Transf (AST/SGOT) 22 5-34 U/L Alanine Aminotransferase (ALT/SGPT) 21 0-55 U/L Alkaline Phosphatase 249 H 40-136 U/L Total Protein 6.4 6.4-8.2 GM/DL Albumin 3.4 3.2-4.5 GM/DL Anisocytosis SLIGHT Physical Exam: General - Alert and oriented, no apparent distress Abdomen - Soft, appropriately tender to palpation, non-distended, fundus firm at umbilicus Incision - clean, dry and intact; no erythema or induration, no drainage Extremities - no edema, negative Robbie's bilaterally [] Assessment: [] post-operative day # [], status post []. Recovering well, hemodynamically stable Acute blood loss anemia [] Plan: Routine post-operative care. Encourage breast feeding. Encourage ambulation. VTE prophylaxis: SCDs. Ferrous sulfate supplementation. Plan for discharge [] Vitals - Labs Vital Signs - I&O Vital Signs Date Time Temp Pulse Resp B/P (MAP) Pulse Ox O2 Delivery O2 Flow Rate FiO2 02/19/19 08:20 98 Room Air 02/19/19 08:20 36.6 99 18 140/88 (105) 98 Room Air 02/19/19 04:51 36.5 79 18 116/76 (89) 98 Room Air 02/18/19 21:54 36.7 98 18 140/85 (103) 99 Room Air 02/18/19 21:42 96 Room Air 02/18/19 20:00 99 Room Air 02/18/19 18:28 98 Room Air 02/18/19 15:47 36.4 98 18 134/79 (97) 96 Room Air Labs Microbiology 02/16/19 MRSA Screen - Final, Complete MRSA not isolated JESUS BIGGS DO Feb 19, 2019 09:10 POS
[2019-02-19] MEDS ORDERED: GUAI600T43 PO (09:15)
[2019-02-19] MEDS ORDERED: FURO20TA4 PO (09:15)
[2019-02-19] MEDS ORDERED: GABA-488 PO (09:15)
[2019-02-19] MEDS ORDERED: ACET-77 PO (09:15)
[2019-02-19] MEDS ORDERED: IBUP-844 PO (09:15)
[2019-02-19] MEDS ORDERED: DOCU100C37 PO (09:15)
[2019-02-19] MEDS ORDERED: OXC5T PO (09:15)
--- NOTE | 2019-02-19 09:17 | Short Stay Summary ---
Discharge Summary Hospital Course Was the Problem List Reviewed?: Yes Final Diagnosis: previous section, gestational hypertensio Hospital Course Date of Admission: Feb 16, 2019 at 11:05 Admission Diagnosis : Family Physician/Provider: No,Local Physician Date of Discharge: 02/19/19 Discharge Diagnosis: [ ] Hospital Course: [ ] Labs and Pending Lab Test: Microbiology 02/16/19 MRSA Screen - Final, Complete MRSA not isolated Home Meds Active No Active Prescriptions or Reported Medications Assessment/Pt Instructions DC home, follow up with Dr. Peterson within 1 week to assist with pain management and drug usage/rehab Discharge Instructions Discharge Diet: No Restrictions Activity as Tolerated: Yes (nothing in vagina for 6 weeks, no driving for 1 week, no lifting over 25 lbs) Consultations Dr. Jessika Peterson outpatient Discharge Physical Examination General Appearance: Alert HEENT: Atraumatic Respiratory: Clear to Auscultation, Normal Air Movement Cardiovascular: Regular Rate, Normal S1, Normal S2 Abdominal: Normal Bowel Sounds Extremities: Other (1+ edema) Allergies: Coded Allergies: No Known Drug Allergies (Unverified , 02/13/19) Discharge Summary Date of Admission Feb 16, 2019 at 11:05 Date of Discharge Discharge Date: Feb 19, 2019 Clinical Quality Measures DVT/VTE Risk/Contraindication: Risk Factor Score Per Nursin RFS Level Per Nursing on Admit: 2=Moderate JESUS BIGGS DO Feb 19, 2019 09:16 POS
--- NOTE | 2019-02-19 09:19 | Discharge Inst-Women's Service ---
Discharge Inst-Women's Serv Depart Medication/Instructions New, Converted or Re-Newed RX: Transmitted to Pharmacy Instructions follow up with Dr. Jessika Peterson within 1 week. The hospital will set this appointment up for you. Final Diagnosis previous section gestational hypertension labile blood pressures positive UDS Consults/Follow Up Additional Follow Up: Yes (1 week with Ellie; 6 week pp exam; appointment with Dr. Jessika Peterson within 1 week at [facility]) Activity Activity: Activity as Tolerated Driving Instructions: No Driving for 1 Week NO SMOKING: NO SMOKING Nothing Inside Vagina: No Douching, No Post, No Tampons Diet Discharge Diet: No Restrictions Symptoms to Report to : Swelling Increased, Bleeding Excessive, Pain Increased, Fever Over 101 Degrees F, Vaginal Bleeding Increase, Cramps in Feet or Legs, Vaginal Discharge Foul For Any Problems or Questions: Contact Your Physician Skin/Wound Care Infection Signs and Symptoms: Increased Redness, Foul Odor of Wound, Increased Drainage, Skin Itchy or Has a Rash, Increased Swelling, Temperature Above 101 F Operative Area Clean and Dry: Keep Incision Clean/Dry Stitches/Sondra/Dermabond: Dermabond Bathing Instructions: JESUS Qureshi DO Feb 19, 2019 09:19 POS
--- NOTE | 2019-02-19 09:28 | NUR ---
here. dismissal orders received.
[2019-02-19] MEDS ORDERED: RT-ALBUINH INH (09:30)
[2019-02-19] MEDS ORDERED: NICOTINE PATCH REMOVAL TP NR (09:45)
--- NOTE | 2019-02-19 10:15 | NUR ---
dismissal instructions given, verbalizes understanding. reviewed follow up appointments & Rx's. signature page singed, placed on chart.
--- NOTE | 2019-02-19 10:30 | NUR ---
pt ambulated to private vehicle with this RN, and family members @ side. secured in rear facing car seat. pt stable with no sx's of distress noted.
--- NOTE | 2019-02-19 13:37 | NUR ---
Contacted DCF again today and talked with Mackenzie Rodriguez, [employer] Former,[facility] that Avery Esqueda is pt's social worker palliative care and will be working with pt and to establish follow-up services.
== END 2019-02-19 10:30 | disposition home or self-care (01) | DRG 787 ==
LOC: LDRP 11:05
PROVIDERS: ADMIT Obstetrics & Gynecology; ATTEND Obstetrics & Gynecology
PROC: 10D00Z1 Extraction of Products of Conception, Low, Open Approach (ICD-10-PCS; principal; 2019-02-16 12:47)
DX: O34.211 Maternal care for low transverse scar from previous cesarean delivery (principal); D62 Acute posthemorrhagic anemia; Z37.0 Single live birth; O13.4 Gestational [pregnancy-induced] hypertension without significant proteinuria, complicating childbirth; O90.81 Anemia of the puerperium; O99.334 Smoking (tobacco) complicating childbirth; F17.200 Nicotine dependence, unspecified, uncomplicated; Z3A.37 37 weeks gestation of pregnancy
CPT/HCPCS: 36415; 71046; 80053; 80306; 81000; 82570; 84156; 85007; 85025; 85027; 86850; 86900; 86901; 87081; 94640; 94664; 94760